=== PATIENT | male | born 1985 | race Hispanic/Latino ===

== ENCOUNTER 2024-11-21 23:54 | Emergency (ER) | payer OTHER ==
[~2024-11-21] VITALS: Ht 170.2 cm; Wt 94.3 kg
[2024-11-22 00:01] VITALS: PULSE 88; RESP 20; TEMP 98.7
[2024-11-22] MEDS ORDERED: DEXAMETHASONE 10MG/ML PF INJ IM STA (00:05)
[2024-11-22] MEDS ORDERED: DEXAMETHASONE SOD PHOS 10 MG/1 ML VIAL ONE (00:12)
[2024-11-22] MEDS: DEXAMETHASONE SOD PHOS 10 MG/1 ML VIAL IM ONE (00:17)
[2024-11-22 00:46] LABS: CORONAVIRUS COVID-19 AG NEGATIVE (NEGATIVE); INFLUENZA A AG NEGATIVE (NEGATIVE); INFLUENZA B AG NEGATIVE (NEGATIVE); STREPTOCOCCUS GRP A ANTIGEN NEGATIVE (NEGATIVE)
[2024-11-22 01:00] VITALS: BP 133/77; PULSE 85; RESP 20; TEMP 97.8; O2SAT 97
[2024-11-22] MEDS ORDERED: VENTOLIN HFA18 GM INH (01:01)
[2024-11-22] MEDS ORDERED: AZITHROMYCIN250 MG PO (01:01)
[2024-11-22] MEDS ORDERED: PREDNISONE20 MG PO (01:01)
== END 2024-11-22 01:03 | disposition home or self-care (01) ==
LOC: ER 11-22 00:03
DX: R06.02 Shortness of breath (principal); J06.9 Acute upper respiratory infection, unspecified; R05.9 Cough, unspecified; R53.81 Other malaise; Z11.52 Encounter for screening for COVID-19
CPT/HCPCS: 83518; 87070; 87428; 99283; J1100